=== PATIENT | male | born 2000 | race Caucasian/White ===

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

== ENCOUNTER 2023-06-28 08:22 | Emergency (ER) | payer SELFPAY ==
[~2023-06-28] VITALS: Ht 170.2 cm; Wt 52.3 kg
[2023-06-28 08:39] VITALS: BP 115/67; PULSE 66; RESP 20; TEMP 97.8; O2SAT 99
[2023-06-28] MEDS ORDERED: TETRACAINE HCL 0.5% OPTH(EYE) SOLN 4ML RIGHTEYE ONE (09:00)
[2023-06-28] MEDS ORDERED: FLUORESCEIN SOD OPTH TEST STRIP OP ONE (09:00)
[2023-06-28] MEDS ORDERED: CIPR0.3S67 OP (09:17)
== END 2023-06-28 09:24 | disposition home or self-care (01) ==
LOC: ER 08:22
DX: T15.01XA Foreign body in cornea, right eye, initial encounter (principal); X58.XXXA Exposure to other specified factors, initial encounter; Y93.89 Activity, other specified; Y92.89 Other specified places as the place of occurrence of the external cause; Y99.8 Other external cause status
CPT/HCPCS: 65220